=== PATIENT | male | born 1970 | race Caucasian/White ===

== ENCOUNTER → 2017-02-03 | Outpatient (CLI) | payer BC ==
[~2017-02-03] MED LIST: BACTROBAN22 GM TOP; DEPAKOTE PO; NO MEDICATIONS; PEN-VEE K PO; TYLENOL #3 PO
--- NOTE | ~2017-02-03 | CR63 ---
[facility] A Service of [facility] & [facility] RADIOLOGY TEXT RESULTS PATIENT: JOSIE BRAMBILA LOCATION: [facility] : 70 UNIT #: [id number] AGE: [address]: Ignacia Camarillo MD SEX: M ORDER DR: [id number] [facility] [address] [place], [place] [address] [id number] O MR#: [id number] Acc #: [id number] NAME: JOSIE BRAMBILA : 1970 SEX: M STUDY DATE/TIME: 02/03/2017 12:31 UNIT: [facility] ROOM: STUDY DESCRIPTION: CR Chest 2 View Attending Physician: Ignacia Camarillo M.D. Referring Physician: Ignacia Camarillo M.D. Ordering Physician: Ignacia Camarillo M.D. Primary Care Physician: Ignacia Camarillo M.D. MEDICAL IMAGING REPORT This report is preliminary unless electronic signature is present EXAM Chest, 02/03/2017, [facility]. HISTORY 47-year-old male patient; short of breath, left-sided chest pain, cough, symptoms 2 months duration. COMPARISON None FINDINGS Two-view chest demonstrates normal cardiac size and configuration. Hilar structures and mediastinal contours are preserved. Bilateral lungs are expanded and clear. Bony thorax is normal. IMPRESSION Negative chest. Dictated by... Filippo Lujan M.D. THIS IS AN ELECTRONICALLY VERIFIED REPORT Filippo Lujan M.D. at 02/06/2017 8:05 AM Sary TD: 02/03/2017 16:05 JOB #: [id number] MEDICAL IMAGING REPORT Page 1 of 1 COPY
== END | disposition home or self-care (01) ==
LOC: CRAD 12:26
DX: R06.02 Shortness of breath (principal)
CPT/HCPCS: 71020

== ENCOUNTER → 2017-02-10 | Outpatient (CLI) | payer BC ==
--- NOTE | ~2017-02-10 | ST ---
Unit #: [id number] #: [id number] Patient: JOSIE BRAMBILA [id number] [address] [address] [id number] O MR#: [id number] NAME: JOSIE BRAMBILA : 1970 SEX: M STUDY DATE/TIME: 02/15/2017 UNIT: [facility] ROOM: STUDY DESCRIPTION: Exercise stress test Attending Physician: Ignacia Camarillo M.D. Referring Physician: Ignacia Camarillo M.D. Primary Care Physician: Ignacia Camarillo M.D. CARDIOLOGY REPORT PROCEDURE PERFORMED Exercise stress test. PROCEDURE Baseline electrocardiogram shows normal sinus rhythm and is within normal limits. The patient exercised for a total duration of 12 minutes achieving a heart rate of 150 per minute, which is submaximally predicted for his age. He denied any chest discomfort. No electrocardiographic, clinical or hemodynamic abnormalities were detected. No arrhythmias were precipitated. These findings suggest low probability for significant ischemic heart disease. IMPRESSION 1. Exercise stress test shows low probability for significant ischemic heart disease at submaximal predicted heart rate; 2. Normal blood pressure response to exercise; 3. [id number] exercise tolerance. Dictated by... Angus Rodas/carla TD: 02/15/2017 15:59 JOB #: [id number] CARDIOLOGY REPORT Page 1 of 1 X Olivier Powers MD CARDIOLOGY REPORT
== END | disposition home or self-care (01) ==
LOC: CEKG 07:52
DX: R07.9 Chest pain, unspecified (principal); R06.02 Shortness of breath
CPT/HCPCS: 93017